=== PATIENT | male | born 1995 | race Caucasian/White ===

== ENCOUNTER 2023-07-22 17:37 | Emergency (ER) | payer OTHER ==
[~2023-07-22] VITALS: Ht 177.8 cm; Wt 59.0 kg
[2023-07-22] MEDS ORDERED: LORazepam 1 MG Tab PO ONE (18:10)
== END 2023-07-22 20:59 | disposition home or self-care (01) ==
LOC: ER 17:37
DX: F16.90 Hallucinogen use, unspecified, uncomplicated (principal)
CPT/HCPCS: 99284; A9270